=== PATIENT | female | born 1975 | race Caucasian/White ===

== ENCOUNTER → 2021-10-20 | Outpatient (CLI) | payer OTHER ==
[~2021-10-20] MED LIST: BARIUM for suspension 96% w/w (Vanilla Silq Medium Density) PO ONE; BARIUM for suspension 98% w/w (Vanilla Silq High Density) PO ONE
--- NOTE | 2021-10-20 12:06 | Diagnostic Imaging Report ---
Indication: Lap band surgery 10 years ago. Patient has persistent reflux and vomiting. Patient ingested effervescent crystals as well as thick barium and imaging of the esophagus was performed at multiple obliquities. Imaging of the stomach was also performed. 0.8 minutes of fluoroscopic time was utilized. 22 images were obtained. The esophagus is somewhat distended. There appears to be some debris within the esophagus. Patient does have a lap band appropriately positioned in the left upper quadrant. Very narrow channel through the lap band is noted with a thin string of contrast extending through the area of the lap band into the stomach. Due to the tight nature of the lap band, there was incomplete distention of the stomach. Procedure was terminated early due to accumulation of thick barium throughout the esophagus which is moderately dilated. IMPRESSION: Dilated and debris-filled esophagus. There appears to be fairly significant narrowing at the level of the lap band near the GE junction resulting in this. No complete obstruction is seen however there is a very narrow channel through the lap band. No other significant abnormality is seen. Dictated by: Dictated on workstation # [id number]
== END ==
LOC: RAD 08:58
PROVIDERS: ATTEND Surgery
DX: K21.9 Gastro-esophageal reflux disease without esophagitis (principal)
CPT/HCPCS: 74246